=== PATIENT | male | born 1945 | race Caucasian/White ===

== ENCOUNTER 2019-02-24 15:45 | Inpatient (IN) ==
--- NOTE | 2019-02-24 15:57 | EKG Report ---
Test Performed on : 02/24/2019 3:50:53 PM Test Reason : chest pain Blood Pressure : / mmHG Vent. Rate : 077 BPM Atrial Rate : 077 BPM P-R Int : 174 ms QRS Dur : 084 ms QT Int : 364 ms P-R-T Axes : 048 -28 023 degrees QTc Int : 411 ms Normal sinus rhythm. Normal ECG When compared with ECG of 26-JUN-2014 06:41, No significant change was found Unconfirmed Result
--- NOTE | 2019-02-24 16:40 | PROVIDER DOCUMENTATION ---
HPI-General Adult - General Chief Complaint: Chest Pain Stated Complaint: HEART PROBLEMS Time Seen by Provider: 02/24/19 16:19 Source: patient, family Allergies/Adverse Reactions: Patient Allergies Allergy/AdvReac Type Severity Reaction Status Date / Time No Known Allergies Allergy Verified 02/24/19 17:22 Home Medications: Home Medication List Medication Instructions Recorded Confirmed Last Taken Type ATORVAstatin [Lipitor] 40 mg PO DAILY 02/24/19 02/24/19 02/23/19 History Amlodipine Besylate [Norvasc] 2.5 mg PO DAILY 02/24/19 02/24/19 02/23/19 History Cyclosporine 0.05% Oph Drops 1 ea BOTH EYES BID 02/24/19 02/24/19 02/23/19 History [Restasis 0.05% Oph Drops] Melatonin 10 mg PO QPM 02/24/19 02/24/19 02/23/19 History Tamsulosin [Flomax] 0.4 mg PO DAILY 02/24/19 02/24/19 02/23/19 History Tramadol [Ultram] 50 mg PO Q6H PRN PRN 02/24/19 02/24/19 02/23/19 History - History of Present Illness -Gen Adult Nature of Presenting Problems: This is a 73yo male who presents with CC of chest pain. Onset was on Thursday morning. Events leading up to event were sweats and travel to [place]. The locat ion of the pain was in the right substernal area, with some noted pain under the left armpit and right shoulder. The patient was admitted to the hospital in [place] and reports a cardiac work up there as well as a CT scan to rule out a clot. The patient reports that the CT was negative, and the cardiac work up was negative, but reports no stress test was done, but they did want to take him to cath. The patient prefered to have cath by the umbrella repairer in [place], so he signed AMA paperwork and proceeded here. Location of Pain/Injury: reports: chest Pain Radiation: reports: no radiation Quality of Pain: reports: pressure Onset/Duration: reports: 4 days ago Timing: reports: intermittent (minimal currently) Modifying Factors: improves with: other (asprin and nitro) Associated Symptoms: reports: other (sweats, left anterior axillary area pain, and right shoulder pain). denies: vomiting Review of Systems - Adult - REVIEW OF SYSTEMS - ADULT Constitutional: denies: fever Eyes: reports: blurred vision Ears, Nose, Mouth & Throat: reports: no symptoms reported. denies: throat pain Cardiovascular: reports: chest pain. denies: palpitations Respiratory: reports: no symptoms reported. denies: shortness of breath Gastrointestinal: reports: no symptoms reported. denies: abdominal pain Genitourinary: reports: no symptoms reported. denies: flank pain Musculoskeletal: reports: other (shoulder pain) Integumentary: reports: no symptoms reported Neurological: reports: headache/migraines Psychiatric: reports: no symptoms reported Endocrine: reports: no symptoms reported Hematologic/Lymphatic: reports: no symptoms reported, other (no bleeding) Allergic/Immunologic: reports: no symptoms reported, other (no swelling) Past History - Adult - PAST MEDICAL HISTORY-ADULT Review of Records: reports: Old Records Reviewed Cardiovascular: reports: CAD, HTN, hyperlipidemia Respiratory: reports: denies history Gastrointestinal: reports: denies history Genitourinary: reports: other (enlarged prostate) Musculoskeletal: reports: denies history Psychiatric: reports: denies history Endocrine/Immune: reports: denies history - FAMILY HISTORY Family History: CVA/TIA - SOCIAL HISTORY Smoking: quit greater than 1 year Substance Use: none/never Physical Exam-General - PHYSICAL EXAM-ADULT Initial Vital Signs Reviewed: Yes - CONSTITUTIONAL General Appearance: appears well, alert, no apparent distress - EYES Eyes: negative: conjuctival exudate - HEAD, EARS, NOSE, MOUTH & THROAT HENMT: normocephalic/atraumatic, moist mucous membranes - NECK Neck: normal inspection - RESPIRATORY Respiratory: crackles (slight LLL rales and dimished sounds at the bases, overall good air movement. bilaterally). negative: no respiratory distress - CARDIOVASCULAR Cardiovascular: regular rate, rhythm, no edema - GASTROINTESTINAL (ABDOMEN) Abdominal Exam: non tender, soft. negative: guarding - SKIN Integumentary: warm/dry - NEUROLOGIC Neurologic: grossly normal - PSYCHIATRIC Psych/Mental Status: normal mood/affect, normal thought content, normal thought process Progress - PLAN OF CARE/RESULTS Progress/Plan/Lab Results: Vital Signs - 8 hr 02/24/19 15:48 Temperature 97.7 F Pulse Rate 87 Respiratory Rate 18 Blood Pressure 149/88 O2 Sat by Pulse Oximetry 95 Orders Category Date Time Status CHEST-2 VIEWS [RAD] Stat Exams 02/24/19 16:20 Ordered CBC WITH DIFF [HEME] Stat Lab 02/24/19 16:20 Uncollected COMPREHENSIVE METABOLIC PANEL [CHEM] Stat Lab 02/24/19 16:20 Uncollected TROPONIN T Stat Lab 02/24/19 16:20 Uncollected EKG [EKG] Stat Ther 02/24/19 15:53 Ordered Result Diagrams: 02/24/19 16:37 02/24/19 16:37 - REASSESSMENT Reassessment #1 Status: other (Outside records reviewed. CT PE performed 02/20 and was negative for PE. Coronary angiogram was recomended, but patient signed out AMA.) Reassessment #2 Time Reassessed: 17:51 Status: other (Discussed case with Dr. Edmond of cardiology who recomded admission for evaluation and stress testing.) - EKG 1 EKG Interpretation (*Must complete 3 of following elements*): Normal Rate: 77 Rhythm: sinus [place]: normal QRS: normal [place] Interval: normal ST Wave: normal Comments: no significant changes noted from 06/20/14 Departure - Departure Date of Disposition Decision: 02/24/19 Time of Disposition Decision: 18:06 DIAGNOSIS: Chest pain Qualifiers: Chest pain type: unspecified Qualified Code(s): R07.9 - Chest pain, unspecified Disposition: ADMITTED INPATIENT 09 Certified Medical Emergency: Emergent Condition: Fair Referrals and Follow-Ups: Addison Collins MD [Primary Care Provider] - - Critical Care Note This patient required my direct & personal management of CC.: No Attestation - Physician/ KIRSTEN Attestation Patient care was provided by Advanced Practice Provider:: No The physician spent face to face time with patient:: Yes Advanced Practice Provider documentation review:: Supervising physician onsite and consulted in the evaluation and care of this patient. The physician did have a face to face encounter with the patient. - HEART Score HEART Score: History: Moderately Suspicious HEART Score: ECG: Normal HEART Score: Age: > or = 65 Years HEART Score: Risk Factors for Atherosclerotic Disease: > or = 3 Risk Factors or History of Atherosclerotic Disease HEART Score: Troponin: < or = Normal Limit Total HEART Score:: 5
--- NOTE | 2019-02-24 16:51 | Diag Imaging Result Doc PS360 ---
EXAM: CHEST-2 VIEWS 02/24/2019 HISTORY: Chest pain TECHNIQUE: PA and lateral chest COMMENT: There is no evidence of acute cardiac or pulmonary disease. Compared to 06/26/2014, there has been no significant change. IMPRESSION: No evidence of acute disease. Electronically signed by Micky Doran 02/24/2019 4:48 PM
[2019-02-24 16:56] LABS: BASO# 0.04 X1000 (0.0-0.2); BASO% 0.9 % (0.0-0.8); EOS# 0.05 X1000 (0.0-0.7); EOS% 1.1 % (0.0-10.0); HEMATOCRIT 45.5 % (42.0-52.0); HEMOGLOBIN 15.1 g/dL (14.0-18.0); LYMPH# 1.19 X1000 (1.2-3.4); LYMPH% 26.7 % (20.5-51.1); MCH 29.7 PG (27-31); MCHC 33.2 g/dL (33-37); MCV 89.4 FL (81-99); MPV 10.1 FL (7.4-10.4); NEUT# 2.78 X1000 (1.4-6.5); NEUT% 62.3 % (42.2-75.2); PLT 189 X1000 (130-400); RBC 5.09 XMIL (4.7-6.1); RDW 14.5 % (11.5-14.5); WBC 4.46 X1000 (4.8-10.8)
[2019-02-24 17:13] LABS: AGAP 13; ALB/GLOB RATIO 1.6; ALBUMIN 3.9 g/dL (3.5-5.0); ALKALINE PHOSPHATASE 66 U/L (32-122); BUN 17 mg/dL (8-22); CALCIUM 9.3 mg/dL (8.8-10.2); CHLORIDE 105 mmol/L (98-107); COSMO 284; CREATININE 1.1 mg/dL (0.7-1.2); ESTIMATED GFR > 60; GLUCOSE 125 mg/dL (70-104); GOT 15 U/L (10-34); GPT 18 U/L (10-44); POTASSIUM 4.6 mmol/L (3.5-5.1); SODIUM 141 mmol/L (136-145); TCO2 23 mmol/L (25-35); TOTAL BILIRUBIN 0.44 mg/dL (0.20-1.00); TOTAL PROTEIN 6.4 g/dL (6.3-8.3)
[2019-02-24] MEDS ORDERED: TYLENOL PO PRN (18:08)
[2019-02-24] MEDS ORDERED: FLOMAX PO ONE (19:56)
[2019-02-24] MEDS ORDERED: LIPITOR PO ONE (19:57)
[2019-02-24] MEDS ORDERED: MELATONIN PO ONE (19:58)
--- NOTE | 2019-02-25 00:09 | HISTORY AND PHYSICAL ---
HISTORY OF PRESENT ILLNESS: Mr. Hussein, who is a 73-year-old, white gentleman, came to the emergency room because of retrosternal chest pain that started early this morning. Actually, about 4 to 5 days ago, over the weekend on Thursday, that was 02/19/2019, he was at [place] and had severe sweating after his workout. He had some chest pain, and pain in the right arm and right shoulder. He thought it would be better. Then, the next morning, he had some tightness in the chest other than pain. It was a pressure feeling and he thought about going to the emergency room. He went to the ER at [facility] and he was hospitalized. He stayed there for several hours, and late later, he signed himself out as he did not like the facility. He stated this morning, he started having some chest pain again, hence he came up to the emergency room here. He drove himself to [place] and came to the emergency room this afternoon. He is a known case of hypertension, hyperlipidemia, has been treated with amlodipine as well as Lipitor 40 mg, and he takes tamsulosin. He also takes some melatonin at bedtime. PAST SURGICAL HISTORY: Reveals history of 2 neck surgeries and 1 back surgery. The last neck surgery was performed by Dr. Juan Alberto Edmond in [place]. He also had hemorrhoid surgery. ALLERGIES: He is not allergic to any medication. SOCIAL HISTORY: He drinks only socially. He used to smoke about a pack for many years, however, quit 25 years ago. 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 REVIEW OF SYSTEMS: Other than tightness in the chest, noncontributory. PHYSICAL EXAMINATION: VITAL SIGNS: Temperature normal, pulse 87 per minute, respiratory rate 18 per minute, blood pressure 149/88. HEAD/EYES: Normocephalic. Pupils PERRLA. Fundus examination normal. NECK: Supple. JVP normal. ENT: Unremarkable. There is no evidence of lymphadenopathy, thyroid enlargement, pedal edema, calf tenderness, anemia, cyanosis, or clubbing. Pedal pulses well felt. BREASTS: Normal chest, normal inspection. LUNGS: Clear on auscultation. PMI in the normal position. Heart sounds normal. No murmur, gallop, or rub noted. ABDOMEN: Nondistended. Hernial orifices normal. No guarding, rigidity, free fluid, masses, or organomegaly. Bowel sounds normal. RECTAL: Exam deferred. CENTRAL NERVOUS SYSTEM: Higher functions normal. Cranial nerves normal. Motor and sensory system examination unremarkable. Deep tendon reflexes normal. Plantars downgoing. Skull and spine examination normal for age except for painful movements. No cerebellar signs or signs of meningeal irritation on local motor exam. SKIN: Unremarkable. IMPRESSION/PLAN: Chest pain. Patient has history of hypertension, hyperlipidemia, and multiple spine surgeries. Cardiology consult has been ordered and he is to get a stress test tomorrow morning probably by Dr. Edmond. His EKG is unremarkable. Cardiac enzymes are negative. cc: Chriss Cannon MD
--- NOTE | 2019-02-25 07:07 | EKG Report ---
Test Performed on : 02/25/2019 06:29:40 AM Test Reason : CP Blood Pressure : / mmHG Vent. Rate : 072 BPM Atrial Rate : 072 BPM P-R Int : 178 ms QRS Dur : 084 ms QT Int : 402 ms P-R-T Axes : 068 -15 051 degrees QTc Int : 440 ms Normal sinus rhythm. Normal ECG When compared with ECG of 24-FEB-2019 15:50, (Unconfirmed) No significant change was found Confirmed by Anirudh Shukla MD ([id number]) on 02/27/2019 9:00:17 AM
[2019-02-25] MEDS ORDERED: NORVASC PO SCH (09:00)
--- NOTE | 2019-02-25 10:17 | CARDIOLOGY CONSULTATION ---
DATE: 02/25/2019 HISTORY OF PRESENT ILLNESS: Mr. Yanick Hussein is a 73-year-old gentleman, who came to the emergency room with chest discomfort 4 to 5 days back in [place]. He had a bout where he had severe diaphoresis. He also had some chest discomfort. Went to the emergency room in [place] where he was ruled out for myocardial infarction. He had a CT scan done to rule out pulmonary embolism which was negative, and he also had an echocardiogram done there which revealed a preserved left ventricular systolic function. There were no significant valvular abnormalities. There was no pericardial effusion. He was in the facility for several hours. He came to [place]. Back home, he has had left-sided chest pain over his left precordium. Subsequently admitted. Electrocardiogram revealed normal sinus rhythm. There were no ST-T changes to suggest ischemia. Three sets of cardiac enzymes were negative. REVIEW OF SYSTEMS: General: A 14-point review of system was done. GI system: There is no history of hematemesis or melena. Central nervous system: No focal weakness to suggest a CVA or TIA. Cardiovascular system: There is no history of palpitations. There is no history of dizziness or syncope. Endocrine system: Stable. PAST SURGICAL HISTORY: 1. Neck surgery for cervical disk at [facility]. 2. He has had back surgery. 3. He has had hemorrhoid surgery. ALLERGIES: He is not known to be allergic to any medication. HOME MEDICATIONS: Atorvastatin 40, amlodipine 2.5, tramadol as needed, tamsulosin. PAST MEDICAL HISTORY: Hyperlipidemia, hypertension, gastroesophageal reflux disease. PHYSICAL EXAMINATION: Vital Signs: On examination, blood pressure was 123/74. Cardiovascular System: Normal jugular venous pressure. There is no thyromegaly. No carotid bruit. First and second heart sounds were heard. There is no S3, S4, or gallop. Respiratory system: Normal air entry. There is no crepitations or rhonchi. Abdomen: Soft, nontender. There was no guarding or rigidity. Bowel sounds were heard. Central nervous system: Alert and he was moving all 4 extremities. Extremities: Examination of extremities showed no pedal edema. HEENT: Atraumatic, normocephalic. Pupils were equal and reacting to light. ASSESSMENT AND PLAN: 1. Mr. Yanick Hussein is a 73-year-old gentleman, who had significant diaphoresis while at [place] and some chest discomfort. Went to the emergency room and was admitted and evaluated there. His CT scan of his chest was unremarkable. Echocardiogram was unremarkable. Cardiac enzymes were negative. He drove back home. Had left-sided chest discomfort, which he describes as sharp in character, in addition to pressure-like sensation. He comes to the emergency room, was admitted. He has history of hypertension, hyperlipidemia. He has been ruled out for myocardial infarction by cardiac enzymes. Sodium 141, potassium 4.6. BUN 17, creatinine 1.1. WBC 4.46, hemoglobin 5, hematocrit 45, platelet count of 189. He has been ruled out for myocardial infarction. We will set him up to undergo a Cardiolite stress test to assess for and rule out ischemia. 2. Hypertension. Blood pressures are under control. Continue with amlodipine. 3. Hyperlipidemia, He is on atorvastatin. I have not made any changes. Thank you for the consult. We will follow hospital course. cc: MD Chriss Pinon MD
[2019-02-25 12:18] VITALS: BP 126/83
[2019-02-25] MEDS ORDERED: LEXISCAN ONE (13:29)
--- NOTE | 2019-02-25 15:20 | Diag Imaging Result Document ---
PROCEDURE NAME: MYOCARDIAL PERF SCAN, STR/REST - 02/25/2019 STUDY: Lexiscan Cardiolite stress. DETAILS AND FINDINGS: Lexiscan was infused per standard protocol. There was no chest pain. Stress electrocardiogram was negative for ischemia. Following Lexiscan infusion, Cardiolite was injected. Then, 13.7 mCi of Cardiolite was injected for the rest phase, 41 millicuries of Cardiolite was injected for the stress phase. Images revealed significant diaphragmatic and chest wall attenuation. There is low-grade fixed defect in the base of the inferior wall suggestive of attenuation defect. Low probability of scar. There is no evidence of ischemia. Left ventricular ejection fraction by gated SPECT was 86%. CONCLUSIONS: 1. No chest pain. 2. Negative Lexiscan stress electrocardiogram. 3. Myocardial perfusion images revealed no evidence of ischemia. 4. There is low-grade fixed defect in the base of the inferior wall suggestive of attenuation defect. There is significant diaphragmatic and chest wall attenuation. Left ventricular ejection fraction by gated SPECT was 86%. cc: MD Sade Pinon PA
--- NOTE | 2019-02-25 16:34 | PROGRESS NOTE ---
DATE: 02/25/2019 Patient relates he has had episodes of chest pain when he was in [place] and had workup and evaluation there in [place] at the hospital to include echocardiogram, serial cardiac enzymes, troponin levels, and EKGs which were negative. Patient also underwent a CT pulmonary angiogram which was negative there at the hospital in [place]. He had come back here and again had some discomfort in his left chest he describes as sharp in nature, woke him up during the night. He came in. He had negative serial cardiac enzymes, troponin levels, and evaluation by Cardiology, Dr. Ariza. He underwent nuclear stress testing today, which is negative except for some fixed defect consistent with attenuation defect. EF of 86%. ASSESSMENT: 1. Chest pains. 2. Hypertension. 3. Hypercholesterolemia. 4. Chronic neck and back pain. 5. Benign prostatic hypertrophy. PLAN: I spoke with the patient in detail. He has not been taking aspirin daily, so we will add that to his current home regimen of medicine. He will resume what he has been on at home and add aspirin 81 mg daily. I spoke with the patient in detail and offered for him to stay and undergo left heart catheterization, but he declines. I spoke with Dr. Ariza twice, and Dr. Ariza relates that his testing is negative, and he feels that he is safe to go home. So, we will discharge the patient home. He happens to have a follow-up with me in 3 days, and he will see me fasting. We will check FLP in the office. We have reviewed his lab data from this hospitalization, which includes essentially normal CBC, CMP, cardiac enzymes, troponin levels, and we will check FLP outpatient along with Accu-Chek as well fasting on Thursday. He also was told he should come back to the ER should he have worsening in any way. We discussed other options to include possible CT coronary angiogram or left heart catheterization outpatient or further GI evaluation if symptoms persist. Again, I spoke with Dr. Ariza twice in regard to the patient's discharge disposition. The patient will take aspirin 81 mg daily. cc: MD Chriss Hyde MD
== END 2019-02-25 16:40 | disposition home or self-care (01) | DRG 313 ==
LOC: ED 15:45 → 3N 15:46
PROVIDERS: ADMIT Internal Medicine; ATTEND Family Medicine

== ENCOUNTER 2019-06-15 07:20 | Day surgery (SDC) ==
[2019-06-06 14:51] LABS: HEMATOCRIT 47.6 % (42.0-52.0); HEMOGLOBIN 15.8 g/dL (14.0-18.0); MCH 29.6 PG (27-31); MCHC 33.2 g/dL (33-37); MCV 89.1 FL (81-99); MPV 9.9 FL (7.4-10.4); RBC 5.34 XMIL (4.7-6.1); WBC 4.39 X1000 (4.8-10.8)
[2019-06-06 15:02] LABS: PROTIME 13.3 Seconds (11.0-16.0)
[2019-06-06 15:03] LABS: PTT 27.8 Seconds (22.3-41.8)
[2019-06-06 15:34] LABS: AGAP 10; BUN 22 mg/dL (8-22); CALCIUM 9.2 mg/dL (8.8-10.2); CHLORIDE 107 mmol/L (98-107); COSMO 284; CREATININE 1.1 mg/dL (0.7-1.2); ESTIMATED GFR > 60; GLUCOSE 115 mg/dL (70-104); POTASSIUM 4.4 mmol/L (3.5-5.1); SODIUM 140 mmol/L (136-145); TCO2 23 mmol/L (25-35)
[2019-06-15] MEDS ORDERED: LR 1,000 ML ONE ×2 (07:52→10:15)
[2019-06-15] MEDS ORDERED: KEFZOL 1 GM/D5W 2 GM/100 ML IVPB ONE (07:52)
[2019-06-15] MEDS ORDERED: QUELICIN (DOSE) ONE (07:58)
[2019-06-15] MEDS ORDERED: XYLOCAINE-MPF 2% ONE (07:58)
[2019-06-15] MEDS ORDERED: STERILE WATER INJ. ONE (07:59)
[2019-06-15] MEDS ORDERED: NORCURON ONE (07:59)
[2019-06-15] MEDS ORDERED: DIPRIVAN 1% ONE (08:01)
[2019-06-15] MEDS ORDERED: FENTANYL ONE (08:12)
[2019-06-15] MEDS ORDERED: MARCAINE 0.25% PF ONE (10:15)
[2019-06-15] MEDS ORDERED: B & O 16A SUPP ONE (10:15)
[2019-06-15] MEDS ORDERED: EPHEDRINE ONE (10:30)
[2019-06-15] MEDS ORDERED: OFIRMEV 1000 MG/ISOTONIC SOLN 1,000 MG/100 ML BOTTLE ONE (10:35)
[2019-06-15] MEDS ORDERED: DECADRON ONE (11:33)
[2019-06-15] MEDS ORDERED: ZOFRAN ONE (11:33)
[2019-06-15] MEDS ORDERED: ROBINUL ONE ×2 (12:07→12:09)
[2019-06-15] MEDS ORDERED: NEOSTIGMINE ONE (12:09)
[2019-06-15] MEDS: DILAUDID ONE ×6 (12:51→13:32)
[2019-06-15 13:06] LABS: URINE SOURCE CATH
[2019-06-15 13:13] LABS: BILIRUBIN URINE NEGATIVE (NEGATIVE); BLOOD URINE MODERATE (NEGATIVE); COLOR STRAW; GLUCOSE URINE NEGATIVE (NEGATIVE); KETONE URINE NEGATIVE (NEGATIVE); LEUKOCYTES URINE NEGATIVE (NEGATIVE); NITRITE URINE NEGATIVE (NEGATIVE); PROTEIN URINE NEGATIVE (NEGATIVE); SP GRAVITY URINE 1.005; TURBIDITY URINE CLEAR (CLEAR); UR EPITHELIAL CELLS <10 /HPF (<10); URINE BACTERIA NEGATIVE /HPF; URINE RBC <10 /HPF (<10); URINE WBC <10 /HPF (<10); UROBILINOGEN URINE NORMAL (NORMAL)
[2019-06-15] MEDS: PHENERGAN ONE ×2 (13:21→13:29)
[2019-06-15] MEDS ORDERED: DITROPAN ONE (13:39)
[2019-06-15] MEDS ORDERED: MORPHINE IV PRN (14:02)
[2019-06-15] MEDS ORDERED: NS 1,000 ML ONE (14:10)
[2019-06-15] MEDS ORDERED: NORCO-7.5 PO PRN (14:15)
[2019-06-15] MEDS ORDERED: LABETALOL IV PRN (14:15)
[2019-06-15] MEDS ORDERED: PHENERGAN PO PRN (14:15)
[2019-06-15] MEDS ORDERED: ZOFRAN IV PRN (14:15)
[2019-06-15] MEDS ORDERED: NORCO-5 PO PRN (14:15)
[2019-06-15] MEDS ORDERED: PHENERGAN IV PRN (14:15)
[2019-06-15] MEDS ORDERED: DILAUDID IV PRN (14:15)
[2019-06-15] MEDS ORDERED: BENADRYL IV PRN (14:15)
[2019-06-15] MEDS ORDERED: SODIUM CHLORIDE 0.9% INJ PRN (14:15)
[2019-06-15] MEDS ORDERED: PHENERGAN PR PRN (14:15)
[2019-06-15] MEDS ORDERED: BENADRYL LIQUID PO PRN (14:15)
[2019-06-15] MEDS: NS 1,000 ML IV SCH (15:00)
[2019-06-15] MEDS ORDERED: ULTRAM PO PRN (15:22)
[2019-06-15] MEDS ORDERED: OFIRMEV 1000 MG/ISOTONIC SOLN 1,000 MG/100 ML BOTTLE IV PRN (18:00)
[2019-06-15] MEDS: KEFZOL 2 GM/D5W 2 GM/50 ML IVPB IV SCH (18:07)
[2019-06-15] MEDS: DITROPAN PO PRN (18:27)
[2019-06-15] MEDS ORDERED: LIPITOR PO SCH (21:00)
[2019-06-15] MEDS ORDERED: MELATONIN PO SCH (21:00)
[2019-06-15] MEDS ORDERED: FLOMAX PO SCH (21:00)
[2019-06-15] MEDS: COLACE PO SCH (22:23)
[2019-06-15] MEDS: PERIDEX MT SCH (22:23)
[2019-06-16] MEDS: KEFZOL 2 GM/D5W 2 GM/50 ML IVPB IV SCH ×3 (02:29→11:54)
[2019-06-16] MEDS: DITROPAN PO PRN ×2 (02:55→13:21)
[2019-06-16] MEDS: NORCO-10 PO PRN ×3 (02:55→13:21)
[2019-06-16 07:29] LABS: HEMOGLOBIN 13.4 g/dL (14.0-18.0); MCH 28.6 PG (27-31); MCHC 31.9 g/dL (33-37); MCV 89.6 FL (81-99); MPV 10.3 FL (7.4-10.4); RBC 4.69 XMIL (4.7-6.1); RDW 13.8 % (11.5-14.5); WBC 5.82 X1000 (4.8-10.8)
[2019-06-16 08:08] LABS: AGAP 8; BUN 14 mg/dL (8-22); CALCIUM 8.8 mg/dL (8.8-10.2); CHLORIDE 106 mmol/L (98-107); COSMO 283; CREATININE 0.9 mg/dL (0.7-1.2); ESTIMATED GFR > 60; GLUCOSE 120 mg/dL (70-104); POTASSIUM 4.2 mmol/L (3.5-5.1); SODIUM 141 mmol/L (136-145); TCO2 27 mmol/L (25-35)
[2019-06-16] MEDS: COLACE PO SCH (08:49)
[2019-06-16] MEDS: PERIDEX MT SCH (08:52)
[2019-06-16] MEDS ORDERED: COZAAR PO SCH (09:00)
[2019-06-16] MEDS ORDERED: NORVASC PO SCH (09:00)
[2019-06-16] MEDS ORDERED: CENTRUM SILVER PO SCH (09:00)
[2019-06-16] MEDS ORDERED: PEPCID PO SCH (09:00)
[2019-06-16 11:14] VITALS: BP 119/69
[2019-06-16] MEDS: NS 1,000 ML IV SCH (11:53)
--- NOTE | 2019-07-12 22:27 | OPERATIVE NOTE ---
PROCEDURE DATE: 06/15/2019 SURGEON: Benjie Ivory MD. PREOPERATIVE DIAGNOSES: 1. Cypress 6 prostate adenocarcinoma. 2. Elevated PSA. POSTOPERATIVE DIAGNOSES: 1. Cypress 6 prostate adenocarcinoma. 2. Elevated PSA. OPERATION: Robotic-assisted laparoscopic prostatectomy, laparoscopic urethral suspension. INDICATIONS: A 73-year-old male who presented to clinic with elevated PSA. He underwent 4K score testing followed by biopsy revealing Delio 6 prostate adenocarcinoma. He desires to proceed with surgical intervention. FINDINGS: Watertight vesicourethral anastomosis at 240 mL. PROCEDURE: After obtaining informed consent, patient was brought to the operating room. Perioperative antibiotics and general endotracheal anesthesia were administered. He was placed in lithotomy position, prepped and draped in sterile fashion. An 18-Haitian Henning catheter was introduced and his bladder was drained. A small stab incision was made in the left upper quadrant and a Veress needle connected to saline syringe was introduced. We confirmed positive drop test, followed by aspiration of fluid in the syringe without evidence of GI contents or blood. His pneumoperitoneal pressure was increased to 15 mmHg. The trocar sites were demarcated in a standard fashion. Next, 10 mL of Marcaine with epinephrine was introduced as a local anesthetic. Bovie electrocautery was used to incise skin. A 12 mm supraumbilical trocar was introduced followed by insertion of robotic camera. The peritoneal cavity was examined and there was no evidence of significant adhesions. We placed the rest of the trocars under direct vision. He was placed in steep Trendelenburg position and the robot was docked. We began by incising the peritoneum approximately 3 cm above the rectum. Right vas deferens was identified, isolated, and transected, followed by isolation and dissection of right seminal vesicle. We then performed the same thing on the left side. We then dissected anterior to vas deferens to the level of the prostate. We dissected posterior to seminal vesicles by incising Denonvilliers' fascia and developing perirectal plane. I then incised lateral to medial umbilical ligaments bilaterally. The bladder was dropped and the space of Retzius was accessed. I cleared the fat off of the endopelvic fascia. I then incised the endopelvic fascia laterally toward the apex. Puboprostatic ligaments were transected. Superficial dorsal venous complex was controlled with bipolar electrocautery. Deep dorsal venous complex was controlled with 0 V-Loc suture with a [id number] fashion with periosteal elevation. Bladder neck was identified by gentle tugging of the Henning catheter. It was incised circumferentially with monopolar cautery. Henning catheter came into the view and was placed on anterior traction. We then transected the bladder neck circumferentially and elevated the prostate anteriorly. The plane was developed between the prostate and the bladder until vas deferens and seminal vesicles came into the view. Those were placed in anterior traction. Attention was then turned to reflect the neurovascular bundles posterolaterally which was done with commercial real estate assistant hemoclips. I then dissected posterior between the prostate and the rectum. The prostatic apex was transected as was the urethra. I used maximal urethral preservation technique. The prostate was delivered and placed into EndoCatch bag. The operative field was inspected for hemostasis and it was excellent. We then used 3-0 V-Loc suture to reapproximate perivesical and periurethral fascia, and saving the sutures for future laparoscopic suspension. I then performed vesicourethral anastomosis with another 3-0 V-Loc suture, reapproximating the bladder mucosa and the urethra in a clockwise and counterclockwise fashion and cross tying the sutures. This was followed by placing a fresh 18- Haitian Henning catheter and testing vesicourethral anastomosis by instilling 240 mL of sterile fluid. There was no evidence of leak. We then decreased pneumoperitoneal pressure to 3 mmHg. Attention was then turned to laparoscopic urethral suspension which was achieved by placing previously introduced Anthony sutures through periosteum lateral to the pubis. The urethra was elevated nicely. Pneumoperitoneal pressure was decreased one more time. There was no evidence of active bleeding. The robot was undocked. Supraumbilical incision was extended. Prostate was delivered in the EndoCatch bag. The wounds were copiously irrigated. Then, #1 PDS suture was used to reapproximate the fascia in a running style, and 0 Vicryl suture was used in a figure-of- eight fashion to reapproximate system port. Next, 4-0 Monocryl was used for subcuticular closure. This was followed by application of Covidien adhesive agent. He was extubated and taken to PACU for further recovery. ESTIMATED BLOOD LOSS: 100 mL. COMPLICATIONS: None. SPECIMENS: #1 labeled as prostate gland. DRAINS: An 18-Haitian Henning catheter. DISPOSITION: To PACU, subsequently to floor for observation with Henning catheter to gravity drainage. cc: Benjie vIory MD
== END 2019-06-16 15:01 | disposition home or self-care (01) ==
LOC: 4N 07:20 → OR 07:20
PROVIDERS: ATTEND Urology